=== PATIENT | female | born 2000 | race African-American/Black ===

== ENCOUNTER 2024-03-24 09:05 | Emergency (ER) | payer BC ==
--- NOTE | 2024-03-24 09:45 | EDPHYS ---
Physician Documentation [facility] Name: Hollie Leyva Age: 23 yrs Sex: Female : 2000 Arrival Date: 03/24/2024 Time: 09:05 Bed 11 Private MD: ED Physician Donald Gusman HPI: 03/24 09:24 This 23 yrs old Female presents to ER via Ambulatory with complaints of Sinus bo1 Infection.. 09:39 Onset: The symptoms/episode began/occurred 2 day(s) ago. Severity of symptoms: in the [facility] emergency department the symptoms Mild as she had decided to seek treatment early. The patient has experienced similar episodes in the past. Pt with sxs for 2 days, runny nose, sinus pressure in the forehead. No fever. Hx of same. Exposed to cat dander.. 09:41 LMP: March 04. 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 - Infectious Disease History:: Denies. - Social history:: Smoking status: Reported history of juuling and/or vaping. ROS: 09:41 Constitutional: Negative for chills, fever, bo1 Exam: 09:41 Constitutional: This is a well developed, well nourished patient who is awake, alert, bo1 and in no acute distress. Head/Face: Normocephalic, atraumatic. Mild tenderness to the forehead. ENT: Nares patent with slight swelling to the turbinates. No nasal discharge, no septal abnormalities noted. Tympanic membranes are normal and external auditory canals are clear. Oropharynx with no redness, swelling, or masses, exudates, or evidence of obstruction, uvula midline. Mucous membranes moist. Neck: Trachea midline, no thyromegaly or masses palpated, and no cervical lymphadenopathy. Supple, full range of motion without nuchal rigidity, or vertebral point tenderness. No Meningismus. 09:41 Eyes: Normal. Vital Signs: 09:16 BP 117 / 83; Pulse 60; Resp 18 S; Temp 97.4(O); Pulse Ox 97% on R/A; Weight 61.23 kg aa5 (R); Height 5 ft. 10 in. (R); 09:16 Body Mass Index 19.37 (61.23 kg, 177.8 cm) aa5 MDM: 09:23 Patient medically screened. bo1 09:43 Differential Diagnosis Acute sinusitis, allergy to cat dander.. bo1 Administered Medications: No medications were administered Disposition Summary: 03/24/24 09:44 Discharge Ordered Notes: Location: Home bo1 Problem: new bo1 Condition: Stable bo1 Diagnosis - Acute frontal sinusitis bo1 Followup: bo1 - With: Private Physician - When: As needed - Reason: If symptoms return Discharge Instructions: - Discharge Summary Sheet bo1 - Sinusitis, Adult, [id number] bo1 Forms: - Medication Reconciliation Form bo1 - Antibiotic Education bo1 - Prescription Opioid Use bo1 - Patient Portal Instructions bo1 - Leadership Thank You Letter bo1 Prescriptions: - Flonase Allergy Relief 50 mcg/actuation Nasal spray, suspension - spray 2 spray INTRANASAL route daily administer into each nostril; 1 unit; bo1 Refills: 0, Product Selection Permitted - Augmentin 875-125 mg Oral Tablet - take 1 tablet ORAL route every 12 hours for 10 days; 20 tablet; Refills: 0, bo1 Product Selection Permitted - Diflucan 150 mg Oral tablet - take 1 tablet ORAL route one time for 1 day; 3 tablet; Refills: 0, Product bo1 Selection Permitted Signatures: Allyson Riggs RN RN aa5 Donald Gusman MD MD bo1
--- NOTE | 2024-03-24 09:45 | ER ---
Nurse's Notes [facility] Name: Hollie Leyva Age: 23 yrs Sex: Female : 2000 Arrival Date: 03/24/2024 Time: 09:05 Bed 11 Private MD: Diagnosis: Acute frontal sinusitis Presentation: 03/24 09:16 Chief complaint: Patient states: nasal congestion that began last night. Coronavirus aa5 screen: congestion. Ebola Screen: Patient denies travel to an Ebola-affected area in the 21 days before illness onset. Initial Sepsis Screen: Does the patient meet any 2 criteria? No. Patient's initial sepsis screen is negative. Does the patient have a suspected source of infection? No. Patient's initial sepsis screen is negative. Risk Assessment: Do you want to hurt yourself or someone else? Patient reports no desire to harm self or others. Onset of symptoms was February 2024. 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 - Infectious Disease History:: Denies. - Social history:: Smoking status: Reported history of juuling and/or vaping. Screenin:46 [facility] ED Fall Risk Assessment (Adult) History of falling in the last 3 months, hb including since admission No falls in past 3 months (0 pts) Confusion or Disorientation No (0 pts) Intoxicated or Sedated No (0 pts) Impaired Gait No (0 pts) Mobility Assist Device Used No (0 pt) Altered Elimination No (0 pt) Score/Fall Risk Level 0 - 2 = Low Risk Oriented to surroundings, Maintained a safe environment, Educated pt \T\ family on fall prevention, incl call for assistance when getting out of bed. Abuse screen: Denies threats or abuse. Denies injuries from another. Nutritional screening: No deficits noted. Tuberculosis screening: No symptoms or risk factors identified. Assessment: 09:46 General: Appears in no apparent distress. Behavior is calm, cooperative. Pain: Pain hb currently is 2 out of 10 on a pain scale. Neuro: Level of Consciousness is awake, alert, obeys commands, Oriented to person, place, time, situation. Cardiovascular: Patient's skin is warm and dry. Respiratory: Respiratory effort is even, unlabored, Respiratory pattern is regular, symmetrical. GI: No signs and/or symptoms were reported involving the gastrointestinal system. : No signs and/or symptoms were reported regarding the genitourinary system. EENT: Reports nasal congestion. Derm: Skin is pink, warm \T\ dry. Musculoskeletal: No signs and/or symptoms reported regarding the musculoskeletal system. Vital Signs: 09:16 BP 117 / 83; Pulse 60; Resp 18 S; Temp 97.4(O); Pulse Ox 97% on R/A; Weight 61.23 kg aa5 (R); Height 5 ft. 10 in. (R); 09:16 Body Mass Index 19.37 (61.23 kg, 177.8 cm) aa5 ED Course: 09:09 Patient arrived in ED. im 09:16 Arm band placed on. aa5 09:17 Triage completed. aa5 09:21 Donald Gusman MD is Attending Physician. bo1 09:46 Lorraine Mackay RN is Primary Nurse. hb 09:46 Patient has correct armband on for positive identification. Provided Education on: use hb of call light. 09:46 No provider procedures requiring assistance completed. Patient did not have IV access hb during this emergency room visit. Administered Medications: No medications were administered Medication: 09:46 VIS not applicable for this client. hb Outcome: 09:44 Discharge ordered by . bo1 09:57 Discharged to home ambulatory, hb 09:57 Condition: stable 09:57 Discharge instructions given to patient, Instructed on discharge instructions, follow up and referral plans. medication usage, Demonstrated understanding of instructions, follow-up care, medications, Prescriptions given X 3, 09:58 Patient left the ED. hb Signatures: Allyson Riggs RN RN aa5 Lorraine Mackay, URSULA VERGARA Lilo Duke Donald Gusman MD MD bo1
[2024-03-24 10:20] VITALS: BP 117/83; TEMP 97.4; O2SAT 97
== END 2024-03-24 09:58 | disposition home or self-care (01) ==
LOC: ER 09:05
DX: J01.10 Acute frontal sinusitis, unspecified (principal)